=== PATIENT | male | born 1955 | race Caucasian/White ===

== ENCOUNTER 2017-05-28 10:34 | Emergency (ER) | payer OTHER ==
[~2017-05-28] VITALS: Ht 175.3 cm; Wt 88.5 kg
--- NOTE | ~2017-05-28 | EKG ---
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
[~2017-05-28 10:34] MED LIST: AMLODIPINE BESY10 MG PO; ASPIRIN EC325 M1 PO; AUGMENTIN 875875 MG PO; CARDIZEM CD 18180 M3 PO; DIOVAN 80 MG TA80 M1 PO; FLAGYL500 MG PO; HYDROCODON-ACE1 EAC7 PO; HYTRIN 2MG CAPSU2 M1 PO; HYTRIN10 MG; LISINOPRIL-HCT1 EAC2 PO; LISINOPRIL20 MG PO; NICOTINE TRANSD21 M1 TD
[2017-05-28] MEDS ORDERED: AMOX TR-K CLV1 EAC4 PO (10:59)
[2017-05-28] MEDS ORDERED: NORVASC5 MG PO (10:59)
[2017-05-28 11:04] LABS: ABSOLUTE NEUTROPHILS 6.5 thou/uL (1.4-8.2); BASOPHILS 0.4 % (0.0-2.0); HEMATOCRIT 41.2 % (42.0-52.0); HEMOGLOBIN 13.9 gm/dL (14.0-18.0); LYMPHOCYTES 14.5 % (24.0-44.0); MCH 29.6 pg (26.0-34.0); MCHC 33.6 g/dL (28.0-37.0); PLATELET COUNT 328 thou/uL (150-400); POLYS 77.1 % (36.0-66.0); RBC 4.68 mil/uL (4.50-6.00); RDW 14.3 % (10.5-14.5); WBC 8.5 thou/uL (4.0-11.0)
[2017-05-28 11:06] LABS: MANUAL DIFF NO
[2017-05-28 11:12] LABS: ANION GAP 11 mmol/L (7-16); BUN 12 mg/dL (7-18); CALCIUM 9.1 mg/dL (8.5-10.1); CHLORIDE 102 mmol/L (98-107); CO2 21 mmol/L (21-32); GLUCOSE 114 mg/dL (74-106); SODIUM 134 mmol/L (136-145)
[2017-05-28 11:21] LABS: ALKALINE PHOSPHATASE 150 U/L (46-116); SGOT 139 U/L (15-37); SGPT 253 U/L (30-65); TOTAL BILIRUBIN 1.9 mg/dL (<0.1-1.0); TOTAL PROTEIN 7.2 g/dL (6.4-8.2); TROPONIN-I < 0.04 ng/mL (<0.04-0.07)
[2017-05-28] MEDS ORDERED: ZOFRAN ODT4 MG PO (13:57)
== END 2017-05-28 14:10 | disposition home or self-care (01) ==
LOC: ER 10:34
PROVIDERS: Emergency Medicine
DX: R10.13 Epigastric pain (principal); R74.0 Nonspecific elevation of levels of transaminase and lactic acid dehydrogenase [LDH]; R11.2 Nausea with vomiting, unspecified; R94.5 Abnormal results of liver function studies; I10 Essential (primary) hypertension; F10.99 Alcohol use, unspecified with unspecified alcohol-induced disorder; Z87.891 Personal history of nicotine dependence

== ENCOUNTER 2020-05-12 09:45 | Day surgery (SDC) | payer OTHER ==
[~2020-05-12] VITALS: Ht 175.3 cm; Wt 88.5 kg
--- NOTE | ~2020-05-12 | O ---
[facility] [place] [address] OPERATIVE REPORT Name: CLAUDIO VILLAGRAN Room #: DEP [facility]..#: [id number] Admission: 05/12/20 Attend Phys: [place] MD Discharge: 05/12/20 Date of : 51 Report #: [id number] THIS REPORT FOR: cc: Florin Crawford MD, Rene P. MD Chu, Peter Y. MD ~ CC: Yolanda Crawford DATE OF SERVICE: 05/12/2020 PREOPERATIVE DIAGNOSIS: Large umbilical hernia. POSTOPERATIVE DIAGNOSIS: Large umbilical hernia. PROCEDURES PERFORMED: Repair of umbilical hernia with large Ventralex ST patch. ANESTHESIA: General. SURGEON: [place] MD COMPLICATIONS: None. ESTIMATED BLOOD LOSS: 5 mL. PROCEDURE NOTE: With the abdomen prepped and draped in sterile fashion, the patient received IV antibiotics. Timeout was performed. A 0.25% Marcaine was used to anesthetize the skin infraumbilically. An infraumbilical curvilinear incision was made. The incision was carried through the skin and subcutaneous tissue. The skin of the umbilicus was lifted off of the underneath properitoneal fat and hernia sac. The hernia sac was fairly large, this was isolated from the surrounding subcutaneous tissue then, from the surrounding fascia. At which point, the hernia sac was reduced into the properitoneal space. Properitoneal dissection was then carried out freeing the pocket behind the abdominal wall and above the peritoneum. The space was opened up well. A large Ventralex ST patch was placed. The patch opened up well. The fascia edges were then trimmed. The fascia was then closed with horizontal mattress 0 Prolene suture x 3. The skin of the umbilicus was then tacked down to the fascia level. Skin was closed with 5-0 PDS. Steri-Strips applied, 4 x 4 was used for pressure, Op-Site was used for dressing. The patient tolerated the procedure well. By: 1203 1211 [place] MD /nt
--- NOTE | ~2020-05-12 | H ---
[facility] [place] [address] HISTORY AND PHYSICAL Name: CLAUDIO VILLAGRAN Room #: PRE [facility] M.R.#: [id number] Admission: Attend Phys: [place] MD Discharge: Date of : 51 Report #: [id number] THIS REPORT FOR: cc: Florin Crawford MD, Rene P. MD Chu,[place] MD ~ CC: Yolanda Crawford MD PREOPERATIVE DIAGNOSIS: Umbilical hernia. HISTORY OF PRESENT ILLNESS: The patient is a 64-year-old who has a history of diverticulitis, history of reflux. The patient noticed umbilical hernia. He complains of discomfort when he bumps into his umbilicus. The hernia has been there since 2013. The patient does heavy lifting. He is able to push it back in. The patient is recommended to have this repaired. The patient is here for surgery. PAST MEDICAL HISTORY: Acid reflux, diverticulitis. He is on amlodipine 10 mg daily. No heart disease, lung disease, diabetes. No bleeding disorder, no liver disease, no kidney disease. No history of blood clot. ALLERGIES: EPINEPHRINE. PAST SURGICAL HISTORY: No prior surgery. FAMILY HISTORY: Heart disease and high blood pressure. Mother had emphysema. 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 He does not smoke and has 7 beers a week. REVIEW OF SYSTEMS: Has some cramp in his leg and back. No shortness of breath, chest pain or palpitation. PHYSICAL EXAMINATION: GENERAL: The patient is well-nourished male, in no acute distress. HEENT: Pupils react to light. Extraocular muscles are intact. Oropharynx is clear. NECK: Soft and supple, no masses. LUNGS: Clear to auscultation. HEART: Regular rate and rhythm. No murmur or gallop. ABDOMEN: Soft with moderate-sized umbilical hernia. No ascites. Hernia is partially reducible. EXTREMITIES: No cyanosis, clubbing or edema. Intact sensory and motor exam. [facility] [address] [place] [address] HISTORY AND PHYSICAL Name: CLAUDIO VILLAGRAN Room #: [facility] M.R.#: [id number] Admission: Attend Phys: [place] MD Discharge: Date of : 51 Report #: [id number] IMPRESSION: The patient with an umbilical hernia. He has discomfort in the area. The patient is recommended to have the hernia repair and use of mesh was discussed. Procedure was discussed. Risk of bleeding and infection and mesh infection and hernia recurrence was discussed. The patient wishes to proceed. By: [id number] [place] MD /nt
[~2020-05-12 09:45] MED LIST changes: +AMOX TR-K CLV1 EAC4 PO; +NORVASC5 MG PO; +PROBIOTIC1 EAC7 PO; +PROTONIX40 M2 PO; +ZOFRAN ODT4 MG PO; +ZOLPIDEM TARTRA10 MG PO
--- NOTE | 2020-05-12 12:48 | EKG ---
[facility] [place] [address] ELECTROCARDIOGRAM REPORT Name: CLAUDIO VILLAGRAN Room #: 150-5 [facility] M.R.#: [id number] Admission: 05/12/20 Attend Phys: [place] MD Discharge: Date of : 51 Report #: [id number] THIS REPORT FOR: cc: Florin Crawford MD, Rene P. MD Santiago, Patrick MD [facility] ~ THIS REPORT FOR: //name// [facility] Test Date: 2020-05-12 Test Time: 10:26:36 Pat Name: CLAUDIO VILLAGRAN Department: Room: 150 5 Gender: M Software Lead: LO : 1955 Requested By: [place] Order Number: [id number] MD: Reynaldo Carr Measurements Intervals [place] Rate: 92 P: 74 NE: 140 QRS: 68 QRSD: 93 T: 38 QT: 379 QTc: 469 Interpretive Statements Sinus rhythm Baseline wander in lead(s) II,III,aVF,V4,V5 Compared to ECG 07/14/2017 14:22:04 No significant changes Electronically Signed On 05-12-2020 12:48:09 CDT by Reynaldo Carr [email or web address] <ELECTRONICALLY SIGNED> By: Reynaldo Carr MD, FAC 05/12/20 1248 1026 1026 Reynaldo Carr MD, FAC /EPI
[2020-05-12 13:15] VITALS: BP 147/102
[2020-05-12] MEDS ORDERED: LORCET 5-325 M1 EACH PO (14:05)
[2020-05-12 14:30] VITALS: BP 147/102
== END 2020-05-12 15:40 | disposition home or self-care (01) ==
LOC: OR 09:45 → TBA 09:45 → OR 10:25
PROVIDERS: ATTEND Surgery
DX: K42.9 Umbilical hernia without obstruction or gangrene (principal); I10 Essential (primary) hypertension; K21.9 Gastro-esophageal reflux disease without esophagitis; Z98.890 Other specified postprocedural states; Z87.891 Personal history of nicotine dependence; Z79.899 Other long term (current) drug therapy; Z87.19 Personal history of other diseases of the digestive system; Z88.8 Allergy status to other drugs, medicaments and biological substances; Z20.828 Contact with and (suspected) exposure to other viral communicable diseases
CPT/HCPCS: 50010; 50101; 50386; 50403; 50621; 56524; 56525; 62110; 62900; 70005

== ENCOUNTER 2021-05-07 10:36 | Inpatient (IN) | payer OTHER ==
[~2021-05-07] VITALS: Ht 175.3 cm; Wt 89.4 kg
--- NOTE | ~2021-05-07 | HC ---
[facility] [place] [address] CONSULTATION Name: CLAUDIO VILLAGRAN Room #: 210-P [facility] IN .R.#: [id number] Admission: 05/07/21 Attend Phys: Lorri Alvarado MD Discharge: Date of : 51 Report #: [id number] THIS REPORT FOR: cc: Florin Crawford MD, Rene P. MD Khosla, Parveen K. MD ~ DATE OF SERVICE: 05/07/2021 HISTORY OF PRESENT ILLNESS: This is a 65-year-old male patient who was evaluated by me for dizziness. This patient drank a significant amount of alcohol on Friday and woke up with the dizziness yesterday morning. He thought it was hangover from alcohol, but he has progressively become worse. His dizziness becomes worse when he moves his head. That also brings nausea. He was given Zofran and meclizine without any significant beneficial effect. In the Emergency Room, he underwent a CT scan of the head, which did show atherosclerotic disease. REVIEW OF SYSTEMS: Indicate that this patient certainly was having neck pain for about a week before these symptoms occurred. I reviewed her prior notes. This patient had presented to Emergency Room with headache and that headache has been because of some dental procedure, which required some local anesthesia. He denies any history of anxiety. He had liver function abnormalities in the past. His liver function today is actually normal. Records indicate he had an MRI of the brain done in 2013. He does not know why it was done, but that showed a question of ischemic changes versus demyelinating disorder, which was more than expected at his age. I cannot pull out those films to review. The patient also has significant difficulty with ambulating. I had talked to Emergency Room physician about giving him a banana bag or thiamine and he was going to arrange that. He did have some abdominal problems in the past, but present nausea and vomiting occur only when this patient moves his head. If he stays still, it is not there. He had 2 episodes of TIA, which are poorly defined. He does have a prior history of supraventricular tachycardia, hypertension and diverticulitis. He had abdominal pain in the past. This was his relevant 14-point review of systems. PAST MEDICAL HISTORY: Positive for TIA, history is poorly defined. FAMILY HISTORY: Unremarkable. SOCIAL HISTORY: He says he drinks alcohol 1 day a week. The last time he drank was Friday. He did more than what he usually does and he drank several beers and 4 shots of whiskey. Symptoms instead of becoming better have progressively become worse. PHYSICAL EXAMINATION: GENERAL: His examination indicate that he is an obese individual with normal [facility] [address] [place] [address] CONSULTATION Name: CLAUDIO VILLAGRAN Room #: 210-P [facility] IN M.R.#: [id number] Admission: 05/07/21 Attend Phys: Lorri Alvarado MD Discharge: Date of : 51 Report #: [id number] hearing and vision. NEUROLOGIC: His cranial nerve examination is impressive for a pretty pronounced nystagmus on looking towards the left. I did not see much nystagmus looking towards the right. This nystagmus does not appear to change direction the best I can tell. Otherwise, his neuromuscular examination was symmetrical. Cranial nerve examination was symmetrical. NECK: There was no edema. There was no thyroid mass. CARDIAC: Unremarkable. LUNGS: No respiratory difficulty was noticed. VITAL SIGNS: His blood pressure is running about 146/79, respirations 11, pulse is 72. LABORATORY DATA: White count is normal and liver function is normal. He did have a CT scan of the head, which does not demonstrate any acute abnormality. IMPRESSION: This patient's symptoms are probably because of labyrinthitis or a hangover from alcohol. The worrisome feature in this patient is that he was having neck pain for a week. Because of that, the possibility of vertebral artery dissection needs to be excluded. This patient also has a poorly defined history of transient ischemic attack and his CT of the abdomen indicates a pretty significant atherosclerotic disease in the aorta, indicating he probably has the same disease at other places. The problem in the management of this patient is that he just got contrast for the CT scan of the abdomen. I think it is pertinent to make sure that he did not have a cerebellar stroke or vertebral artery dissection. Because of that, I am going to go ahead and order an MRI and MRA stat in this patient, it is already ordered. I will not use the contrast at the moment because he is so dizzy and nauseous that I hate to make those things worse. If MR scan is unremarkable, he will merely need an ENT consult and symptomatic management, but if MR scan does show some cerebellar stroke or a vertebral artery dissection, then he will need the management accordingly. I discussed all of it with the patient and discussed his options in that regard and he wants to proceed with this testing and we will arrange that followup on him. Thank you very much for this referral. By: 1448 1557 Enrique Walton MD /nt
[~2021-05-07 10:36] MED LIST changes: +LORCET 5-325 M1 EACH PO
[2021-05-07 10:38] VITALS: BP 171/91
[2021-05-07 11:14] LABS: ABSOLUTE NEUTROPHILS 6.2 thou/uL (1.4-8.2); BASOPHILS 0.3 % (0.0-2.0); HEMATOCRIT 43.2 % (42.0-52.0); HEMOGLOBIN 14.6 gm/dL (14.0-18.0); LYMPHOCYTES 7.3 % (24.0-44.0); MCH 30.1 pg (26.0-34.0); MCHC 33.8 g/dL (28.0-37.0); MCV 88.9 fL (80.0-100.0); MONOCYTES 3.4 % (1.0-8.0); PLATELET COUNT 348 thou/uL (150-400); RBC 4.87 mil/uL (4.50-6.00); RDW 13.9 % (10.5-14.5); WBC 6.9 thou/uL (4.0-11.0)
[2021-05-07 11:27] LABS: CALCIUM 9.3 mg/dL (8.5-10.1); CREATININE 1.1 mg/dL (0.7-1.3); POTASSIUM 4.3 mmol/L (3.5-5.1)
[2021-05-07 11:34] LABS: ALBUMIN 3.9 g/dL (3.4-5.0); MAGNESIUM 1.9 mg/dL (1.8-2.4); TOTAL BILIRUBIN 0.7 mg/dL (0.2-1.0); TOTAL PROTEIN 7.3 g/dL (6.4-8.2)
[2021-05-07 12:20] LABS: URINE BILIRUBIN NEGATIVE (Negative); URINE BLOOD NEGATIVE (Negative); URINE CLARITY CLEAR; URINE COLOR YELLOW; URINE GLUCOSE-RANDOM* NEGATIVE (Negative); URINE KETONES 1+ (Negative); URINE LEUKOCYTES-REFLEX NEGATIVE (Negative); URINE NITRITE-REFLEX NEGATIVE (Negative); URINE PROTEIN (DIPSTICK) NEGATIVE (Negative); URINE UROBILINOGEN 0.2 E.U./dl (0.2-1.0)
[2021-05-07 12:28] LABS: AMP/METHAMP Negative (Negative); BARBITURATES Negative (Negative); BENZODIAZEPINES Negative (Negative); COCAINE Negative (Negative); METHADONE Negative (Negative); OPIATES Negative (Negative); PCP Negative (Negative)
[2021-05-07 14:28] VITALS: BP 156/85
[2021-05-07 14:51] VITALS: BP 146/79
[2021-05-07 15:30] VITALS: BP 103/72
--- NOTE | 2021-05-07 16:00 | NUR ---
PT ADMIT TO CCU APPROX 1510. CONTINUES TO HAVE NAUSEA AND VOMITING. PT AFEBRILE, ADEQUATE UOP, NO BM, NPO. PT HAS BEEN THOUROUGHLY UPDATED AND EDUCATED ON PT CONDITION AND POC. PT SLOWLY PROGRESSING TOWARDS POC.
[2021-05-07 17:06] LABS: FOLIC ACID 8.4 ng/mL (8.6-58.9)
[2021-05-07 19:08] VITALS: BP 167/89
[2021-05-07 20:10] VITALS: BP 146/85
[2021-05-08 02:05] LABS: GLYCOHEMOGLOBIN (HGB A1C) 5.5 % (4.8-5.6)
[2021-05-08 03:46] VITALS: BP 142/80
[2021-05-08 04:27] LABS: CALCIUM 8.6 mg/dL (8.5-10.1); CREATININE 1.4 mg/dL (0.7-1.3); MAGNESIUM 1.9 mg/dL (1.8-2.4); POTASSIUM 3.8 mmol/L (3.5-5.1)
[2021-05-08 04:28] LABS: ABSOLUTE NEUTROPHILS 4.7 thou/uL (1.4-8.2); BASOPHILS 0.4 % (0.0-2.0); EOSINOPHILS 0.6 % (0.0-3.0); HEMATOCRIT 37.2 % (42.0-52.0); HEMOGLOBIN 12.9 gm/dL (14.0-18.0); LYMPHOCYTES 20.6 % (24.0-44.0); MCHC 34.7 g/dL (28.0-37.0); MCV 89.3 fL (80.0-100.0); MONOCYTES 11.6 % (1.0-8.0); PLATELET COUNT 301 thou/uL (150-400); POLYS 66.8 % (36.0-66.0); RBC 4.16 mil/uL (4.50-6.00); RDW 14.1 % (10.5-14.5); WBC 7.1 thou/uL (4.0-11.0)
--- NOTE | 2021-05-08 04:55 | NUR ---
RECEIVED THE PATIENT ALERT AND ORIENTED X4.ON ROOMA IR BREATHING SPONTANEOUSLY.NOT IN PAIN OR DISTRESS.HAD COMPLAINT OF ACID REFLUX, INFORMED CEO NA, ORDERED TO GIVE TUMS PRN.ALL NEEDS ATTENDED.NIH-0 THROUGHOUT THE SHIFT.FOR CONTINOUS MONITORING.
[2021-05-08 08:00] VITALS: BP 141/65
[2021-05-08 08:41] LABS: CHOLESTEROL 199 mg/dL (<200); HDL CHOLESTEROL 34 mg/dL (>40); LDL CHOLESTEROL 120 mg/dL (<100); TC:HDL 5.9 Ratio (Not establshd); TRIGLYCERIDE 227 mg/dL (<150); VLDL 45 mg/dL (<40)
[2021-05-08 12:00] VITALS: BP 134/96
--- NOTE | 2021-05-08 12:37 | 2DMMODE ---
[facility] [place] [address] 2 D/M-MODE ECHOCARDIOGRAM Name: CLAUDIO VILLAGRAN Room #: 210-P ADM IN .#: [id number] Admission: 05/07/21 Attend Phys: Lorri Alvarado MD Discharge: Date of : 51 Report #: [id number] THIS REPORT FOR: cc: Florin Crawford MD, Rene P. MD Park, Jin S. MD ~ APPROVED REPORT Study performed: 05/08/2021 10:58:06 EXAM: Comprehensive 2D, Doppler, and color-flow Echocardiogram Patient Location: In-Patient Room #: 210 Status: routine BSA: 2.05 HR: 65 bpm BP: 141/65 mmHg Rhythm: NSR Other Information Study Quality: Good Risk Factors: Cardiac Risk Factors: HTN Indications Dizziness and Vertigo 2D Dimensions IVSd: 11.17 (7-11mm) LVOT Diam: 21.17 (18-24mm) LVDd: 39.49 mm PWd: 8.26 (7-11mm) Ascending Ao: 35.41 (22-36mm) LVDs: 29.97 (25-40mm) Left Atrium: 31.90 (27-40mm) Aortic Root: 33.44 mm LV Single Plane 4CH: 69.31 % LV Single Plane 2CH: 62.57 % Volumes Left Atrial Volume (Systole) Single Plane 4CH: 50.61 mL Single Plane 2CH: 78.62 mL LA ESV Index: 3470.00 mL/m2 Aortic Valve [facility] [address] 2 D/M-MODE ECHOCARDIOGRAM Name: CLAUDIO VILLAGRAN BHUPENDRA Room #: 210-P [facility] IN .R.#: [id number] Admission: 05/07/21 Attend Phys: Placido Gardner Discharge: Date of : 51 Report #: [id number] AoV Peak Suleman.: 1.67 m/s AO Peak Gr.: 11.41 mmHg LVOT Max P.96 mmHg LVOT Max V: 1.32 m/s NARCISO Vmax: 2.78 cm2 Mitral Valve E/A Ratio: 1.2 MV Decel. Time: 224.90 ms MV E Max Suleman.: 1.12 m/s MV A Sulemna.: 0.95 m/s MV PHT: 65.22 ms IVRT: 69.20 ms Pulmonary Valve PV Peak Suleman.: 1.13 m/s PV Peak Gr.: 5.14 mmHg Pulmonary Vein P Vein S: 0.91 m/s P Vein A: 0.30 m/s P Vein D: 0.54 m/s P Vein A Dur.: 110.7 msec P Vein S/D Ratio: 1.69 Tricuspid Valve TR Peak Suleman.: 2.63 m/s RAP Estimate: 7.00 mmHg TR Peak Gr.: 27.67 mmHg RVSP: 35.00 mmHg Left Ventricle The left ventricle is normal size. There is normal LV segmental wall motion. There is normal left ventricular wall thickness. Left ventricular systolic function is normal. The left ventricular ejection fraction is within the normal range. LVEF is 65-70%. Right Ventricle The right ventricle is normal size. The right ventricular systolic function is normal. Atria Left atrium is borderline dilated. The right atrium size is normal. Aortic Valve The aortic valve is normal in structure. No aortic regurgitation is present. There is no aortic valvular stenosis. Mitral Valve The mitral valve is normal in structure. Mild mitral regurgitation. No evidence of mitral valve stenosis. [facility] [address] [place] [address] 2 D/M-MODE ECHOCARDIOGRAM Name: CLAUDIO VILLAGRAN BHUPENDRA Room #: 210-P [facility] IN [facility].#: [id number] Admission: 05/07/21 Attend Phys: Placido Gardner Discharge: Date of : 51 Report #: [id number] Tricuspid Valve The tricuspid valve is normal in structure. Mild tricuspid regurgitation. PAP 35 mmHg. Pulmonic Valve The pulmonary valve is normal in structure. There is no pulmonic valvular regurgitation. Great Vessels The aortic root is normal in size. IVC is normal in size and collapses >50% with inspiration. Pericardium There is no pericardial effusion. <Conclusion> The left ventricle is normal size. There is normal left ventricular wall thickness. Left ventricular systolic function is normal. The right ventricle is normal size. Left atrium is borderline dilated. The aortic valve is normal in structure. Mild mitral regurgitation. Mild tricuspid regurgitation. <ELECTRONICALLY SIGNED> By: Chance Johnson MD 05/08/21 1237 1237 1237 Chance Johnson MD /INF
[2021-05-08] MEDS ORDERED: B-1100 MG PO (17:19)
[2021-05-08] MEDS ORDERED: MECLIZINE HCL25 MG PO (17:19)
[2021-05-08] MEDS ORDERED: B-12500 MCG PO (17:19)
[2021-05-08] MEDS ORDERED: FOLIC ACID1 MG PO (17:19)
[2021-05-08] MEDS ORDERED: BAYER CHEWABLE81 MG PO (17:19)
[2021-05-08 18:35] VITALS: BP 134/96
[2021-05-08 18:53] VITALS: BP 134/96
--- NOTE | 2021-05-09 07:58 | EKG ---
[address] [employer] [place] [address] ELECTROCARDIOGRAM REPORT Name: CLAUDIO VILLAGRAN BHUPENDRA Room #: 210-P [facility] IN ..#: [id number] Admission: 05/07/21 Attend Phys: Lorri Alvarado MD Discharge: 05/08/21 Date of : 51 Report #: [id number] [facility] ED Test Date: 2021-05-07 Test Time: 10:59:56 Pat Name: CLAUDIO VILLAGRAN Department: Room: 210 Gender: M Naturalist: RADHA : 1955 Requested By: Donavan Booker Order Number: [id number] MD: Jenaro Fletcher Measurements Intervals [place] Rate: 76 P: 66 CO: 148 QRS: 57 QRSD: 109 T: 41 QT: 422 QTc: 475 Interpretive Statements Sinus rhythm Inferior infarct, old Compared to ECG 05/12/2020 10:26:36 No significant change was found Electronically Signed On 05-09-2021 7:58:35 CDT by Jenaro Fletcher [email or web address] <ELECTRONICALLY SIGNED> By: Jenaro Fletcher MD, [facility] 05/09/21 0758 D: 099 105 Jenaro Fletcher MD, FAC /EPI
== END 2021-05-08 21:07 | disposition home or self-care (01) | DRG 682 ==
LOC: ER 10:36 → 2N 14:19 → EROBS 14:19 → 2N 15:20
PROVIDERS: Emergency Medicine; Nurse Practitioner; ADMIT Hospitalist; ATTEND Hospitalist
DX: N17.9 Acute kidney failure, unspecified (principal); I63.9 Cerebral infarction, unspecified; F10.10 Alcohol abuse, uncomplicated; I10 Essential (primary) hypertension; K21.9 Gastro-esophageal reflux disease without esophagitis; Z20.822 Contact with and (suspected) exposure to COVID-19; Z79.82 Long term (current) use of aspirin; Z79.899 Other long term (current) drug therapy; Z88.8 Allergy status to other drugs, medicaments and biological substances; Z87.891 Personal history of nicotine dependence; Z86.14 Personal history of Methicillin resistant Staphylococcus aureus infection
CPT/HCPCS: 10081